=== PATIENT | male | born 1965 | race African-American/Black ===

== ENCOUNTER 2017-01-28 04:23 | Emergency (ER) | payer BC ==
[~2017-01-28] VITALS: Ht 190.5 cm; Wt 97.5 kg
[~2017-01-28 04:23] MED LIST: ACET-907 PO; AMLO5TAB2 PO; ASPI-807 PO; BENA10TA2 PO; METH750T3 PO
[2017-01-28 04:30] VITALS: BP 171/112
[2017-01-28] MEDS ORDERED: BUPIVACAINE 0.5 % PF 150 MG/30 ML VIAL ONE (04:41)
[2017-01-28] MEDS ORDERED: BUPIVACAINE 0.5 % PF 150 MG/30 ML VIAL IJ ONE (05:00)
== END 2017-01-28 05:08 | disposition home or self-care (01) ==
LOC: ER 04:25
DX: M62.830 Muscle spasm of back (principal); I10 Essential (primary) hypertension; I25.2 Old myocardial infarction; G89.29 Other chronic pain; Z79.82 Long term (current) use of aspirin; Z88.1 Allergy status to other antibiotic agents; Z88.6 Allergy status to analgesic agent; F17.200 Nicotine dependence, unspecified, uncomplicated
CPT/HCPCS: 20552; 99284; A4606; J3490; Z7610

== ENCOUNTER 2017-11-02 23:41 | Emergency (ER) | payer BC ==
[~2017-11-02] VITALS: Ht 190.5 cm; Wt 95.3 kg
[2017-11-02 23:48] VITALS: BP 150/91
[2017-11-03] MEDS ORDERED: DIAZEPAM 10 MG TABLET ONE (00:08)
[2017-11-03] MEDS ORDERED: DIAZEPAM 10 MG TABLET PO ONE (00:30)
[2017-11-03] MEDS ORDERED: DIAZEPAM 5 MG/ML 2 ML DISP.SYRIN IM ONE (00:30)
== END 2017-11-03 00:14 | disposition home or self-care (01) ==
LOC: ER 23:46
DX: S39.012A Strain of muscle, fascia and tendon of lower back, initial encounter (principal); I10 Essential (primary) hypertension; M48.00 Spinal stenosis, site unspecified; G89.29 Other chronic pain; F17.200 Nicotine dependence, unspecified, uncomplicated; I25.2 Old myocardial infarction; Z79.82 Long term (current) use of aspirin; Z88.5 Allergy status to narcotic agent; Z88.1 Allergy status to other antibiotic agents; Z88.6 Allergy status to analgesic agent; X58.XXXA Exposure to other specified factors, initial encounter; Y93.89 Activity, other specified; Y92.89 Other specified places as the place of occurrence of the external cause; Y99.8 Other external cause status
CPT/HCPCS: 99283; A4606; Z7610

== ENCOUNTER 2017-12-11 00:39 | Emergency (ER) | payer BC ==
[~2017-12-11] VITALS: Ht 190.5 cm; Wt 97.5 kg
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
--- NOTE | 2017-12-11 01:01 | NUR ---
PT AMBULATORY TO ER BED 6. PT NOTED WITH LIMPING GATE.
--- NOTE | 2017-12-11 01:18 | NUR ---
DR. PETTIT AT BEDSIDE FOR EVAL.
[2017-12-11] MEDS ORDERED: oxyCODONE/APAP (5/325 MG) 1 UDTAB TABLET ONE (01:25)
[2017-12-11] MEDS: oxyCODONE/APAP (5/325 MG) 1 UDTAB TABLET PO ONE (01:27)
--- NOTE | 2017-12-11 01:32 | NUR ---
PT TO RADIOLOGY
--- NOTE | 2017-12-11 01:44 | NUR ---
PT RETURNED FROM RADIOLOGY
--- NOTE | 2017-12-11 03:20 | NUR ---
DR. PETTIT AT BEDSIDE SPEAKING TO PT REGARDING RESULTS.
[2017-12-11 03:36] VITALS: BP 128/98
== END 2017-12-11 03:38 | disposition home or self-care (01) ==
LOC: ER 00:41
DX: M54.5 Low back pain (principal); G89.29 Other chronic pain; I10 Essential (primary) hypertension; I25.2 Old myocardial infarction; M48.00 Spinal stenosis, site unspecified; F17.200 Nicotine dependence, unspecified, uncomplicated; Z88.1 Allergy status to other antibiotic agents; Z88.5 Allergy status to narcotic agent; Z79.82 Long term (current) use of aspirin; W06.XXXA Fall from bed, initial encounter; Y93.89 Activity, other specified; Y92.89 Other specified places as the place of occurrence of the external cause; Y99.8 Other external cause status
CPT/HCPCS: 72110-TC; A4606; Z7610

== ENCOUNTER 2018-02-01 08:35 | Emergency (ER) | payer BC ==
[~2018-02-01] VITALS: Ht 190.5 cm; Wt 95.3 kg
[~2018-02-01 08:35] MED LIST changes: -AMLO5TAB2 PO; +AMLO5TAB7 PO; -BENA10TA2 PO; +BENA10TA9 PO
--- NOTE | 2018-02-01 08:40 | NUR ---
AAOX3, BIB C/O LOWER BACK PAIN RADIATES TO LEFT GROIN DOWN TO HIS KNEES X 1 WEEK. DENIES RECENT TRAUMA OR INJURY. CMS WNL. SKIN IS WARM AND DRY. RESP IS EVEN AND UNLABORED WITH NAD NOTED. DR FAN AT BS FOR EVAL.
[2018-02-01] MEDS ORDERED: KETOROLAC TROMETHAMINE 15 MG/ML VIAL ONE (08:57)
[2018-02-01] MEDS ORDERED: CYCLOBENZAPRINE 10 MG TABLET ONE (08:58)
[2018-02-01] MEDS ORDERED: KETOROLAC TROMETHAMINE INJ 30 MG/ML VIAL IM ONE (09:00)
[2018-02-01] MEDS ORDERED: CYCLOBENZAPRINE 10 MG TABLET PO ONE (09:00)
[2018-02-01 09:45] VITALS: BP 138/82
== END 2018-02-01 09:46 | disposition home or self-care (01) ==
LOC: ER 08:43
DX: M54.5 Low back pain (principal); I10 Essential (primary) hypertension; I25.10 Atherosclerotic heart disease of native coronary artery without angina pectoris; M48.00 Spinal stenosis, site unspecified; F17.200 Nicotine dependence, unspecified, uncomplicated; G89.29 Other chronic pain; I25.2 Old myocardial infarction; Z79.82 Long term (current) use of aspirin; Z88.5 Allergy status to narcotic agent; Z88.6 Allergy status to analgesic agent; Z88.1 Allergy status to other antibiotic agents
CPT/HCPCS: 96372; 99283; A4606; J1885; Z7610

== ENCOUNTER 2019-02-11 15:53 | Emergency (ER) | payer BC ==
[~2019-02-11] VITALS: Ht 190.5 cm; Wt 97.5 kg
[~2019-02-11 15:53] MED LIST changes: -AMLO5TAB7 PO; +AMLO5TAB9 PO
--- NOTE | 2019-02-11 16:15 | NUR ---
CAME IN FOR BACK PAIN RADIATING TO BILAT LOWER EXTREMITY, SHOOTING PAIN DESCRIBED BY THE PATIENT, SINCE LAST NIGHT 07/30 PS. TO ER BED 2, HOOKED TO MONITOR, CHANGED TO GOWN, PROVIDED W WARM BLANKET, AWAITING MD SPANN.
--- NOTE | 2019-02-11 16:30 | NUR ---
CYDNEY DE SOUZA AT BEDSIDE
[2019-02-11] MEDS ORDERED: KETOROLAC TROMETHAMINE INJ 30 MG/ML VIAL IM ONE (17:00)
[2019-02-11] MEDS ORDERED: CYCLOBENZAPRINE 10 MG TABLET PO ONE (17:00)
[2019-02-11] MEDS ORDERED: CYCLOBENZAPRINE 10 MG TABLET ONE (17:05)
[2019-02-11] MEDS ORDERED: KETOROLAC TROMETHAMINE 15 MG/ML VIAL ONE (17:05)
[2019-02-11] MEDS ORDERED: HYDROMORPHONE HCL 2 MG TABLET ONE (17:22)
[2019-02-11] MEDS ORDERED: HYDROMORPHONE HCL 2 MG TABLET PO PRN (17:30)
--- NOTE | 2019-02-11 18:40 | NUR ---
Patient discharged to home in stable condition. Written and verbal after care instructions given. Patient verbalizes understanding of instruction.
[2019-02-11 18:52] VITALS: BP 136/90
== END 2019-02-11 18:41 | disposition home or self-care (01) ==
LOC: ER 15:58
DX: G89.29 Other chronic pain (principal); M54.5 Low back pain; F03.90 Unspecified dementia, unspecified severity, without behavioral disturbance, psychotic disturbance, mood disturbance, and anxiety; I10 Essential (primary) hypertension; I21.9 Acute myocardial infarction, unspecified; F17.200 Nicotine dependence, unspecified, uncomplicated; Z98.890 Other specified postprocedural states; Z88.1 Allergy status to other antibiotic agents; Z88.5 Allergy status to narcotic agent; Z79.84 Long term (current) use of oral hypoglycemic drugs
CPT/HCPCS: 99283; J1885

== ENCOUNTER 2019-07-08 23:37 | Emergency (ER) | payer BC ==
[~2019-07-08 23:37] MED LIST changes: +BENA10TA11 PO; -BENA10TA9 PO
--- NOTE | 2019-07-09 01:15 | NUR ---
CALLED TO BE TRIAGED, NO ANSWER
== END 2019-07-09 01:54 | disposition left against medical advice (07) ==
LOC: ER 23:37
DX: Z53.21 Procedure and treatment not carried out due to patient leaving prior to being seen by health care provider (principal)

== ENCOUNTER 2019-09-09 02:29 | Emergency (ER) | payer BC ==
[~2019-09-09] VITALS: Ht 190.5 cm; Wt 93.9 kg
[2019-09-09 02:49] VITALS: BP 178/109
[2019-09-09] MEDS ORDERED: HYDROMORPHONE INJ 2 MG/ML DISP.SYRIN IM ONE (03:30)
[2019-09-09] MEDS ORDERED: HYDROMORPHONE INJ 2 MG/ML DISP.SYRIN ONE (03:35)
--- NOTE | 2019-09-09 03:46 | NUR ---
Patient discharged to home in stable condition. Rx and Written and verbal after care instructions given. Patient verbalizes understanding of instruction.
== END 2019-09-09 03:54 | disposition home or self-care (01) ==
LOC: ER 02:30
DX: M54.5 Low back pain (principal); I10 Essential (primary) hypertension; I25.2 Old myocardial infarction; G89.29 Other chronic pain; Z98.890 Other specified postprocedural states; Z88.1 Allergy status to other antibiotic agents; Z88.6 Allergy status to analgesic agent; Z79.899 Other long term (current) drug therapy; Z79.82 Long term (current) use of aspirin
CPT/HCPCS: 96372; 99283; J1170

== ENCOUNTER 2019-11-05 01:36 | Emergency (ER) | payer BC ==
[~2019-11-05] VITALS: Ht 190.5 cm; Wt 96.2 kg
[~2019-11-05 01:36] MED LIST changes: -BENA10TA11 PO; +BENA10TA74 PO
--- NOTE | 2019-11-05 02:10 | NUR ---
PT PRESENTED TO THE ER WITH A C/O LT LOWER CHRONIC BACK PAIN THAT RADIATES TO THE LLE. PT STATED THAT THE PAIN RADIATED FROM HIS BACK TO HIS LT KNEE W/ NUMBNESS. PT AMBULATED TO ER 7 WITH A LIMP. PT STATED THAT HE CAN NOT SIT DOWN. PT IS LYING ON HIS RT SIDE. WILL CONTINUE TO MONITOR THE PT.
[2019-11-05] MEDS ORDERED: HYDROMORPHONE 1 MG/1 ML DISP.SYRIN ONE ×2 (02:43→02:47)
[2019-11-05] MEDS ORDERED: LORAZEPAM INJ 2 MG/ML VIAL ONE (02:43)
[2019-11-05] MEDS ORDERED: HYDROMORPHONE INJ 2 MG/ML DISP.SYRIN IM ONE (03:00)
[2019-11-05] MEDS ORDERED: LORAZEPAM INJ 2 MG/ML VIAL IM ONE (03:00)
--- NOTE | 2019-11-05 03:02 | NUR ---
Patient discharged to home in stable condition. Written and verbal after care instructions given. Patient verbalizes understanding of instruction AND RX. PT AMBULATED OUT WITH A SLIGHT LIMP. VSS PT'S IS DRIVING THE PT HOME.
[2019-11-05 03:04] VITALS: BP 148/89
== END 2019-11-05 03:05 | disposition home or self-care (01) ==
LOC: ER 01:38
DX: M54.42 Lumbago with sciatica, left side (principal); G89.29 Other chronic pain; I10 Essential (primary) hypertension; I25.2 Old myocardial infarction; Z98.890 Other specified postprocedural states; Z88.1 Allergy status to other antibiotic agents; Z88.5 Allergy status to narcotic agent; Z79.82 Long term (current) use of aspirin; Z79.899 Other long term (current) drug therapy
CPT/HCPCS: 96372 ×2; 99283; J1170 ×2; J2060

== ENCOUNTER 2020-03-21 13:50 | Emergency (ER) | payer BC ==
[~2020-03-21] VITALS: Ht 190.5 cm; Wt 97.1 kg
--- NOTE | 2020-03-21 14:11 | NUR ---
back pain x 2 days
--- NOTE | 2020-03-21 14:30 | NUR ---
dr conti at bedside for eval.
[2020-03-21] MEDS ORDERED: HYDROCODONE/APAP 10/325MG 1 EA TABLET ONE (14:43)
[2020-03-21] MEDS ORDERED: HYDROCODONE/APAP 10/325MG 1 EA TABLET PO ONE (15:00)
--- NOTE | 2020-03-21 15:05 | NUR ---
Patient discharged to home in stable condition. Written and verbal after care instructions given. Patient verbalizes understanding of instruction.
[2020-03-21 15:06] VITALS: BP 135/87
== END 2020-03-21 15:06 | disposition home or self-care (01) ==
LOC: ER 13:54
DX: G89.29 Other chronic pain (principal); M54.5 Low back pain; I10 Essential (primary) hypertension; I25.2 Old myocardial infarction; Z98.890 Other specified postprocedural states; Z88.1 Allergy status to other antibiotic agents; Z88.6 Allergy status to analgesic agent; Z79.899 Other long term (current) drug therapy; Z79.82 Long term (current) use of aspirin

== ENCOUNTER 2020-03-21 18:10 | Emergency (ER) | payer BC ==
[~2020-03-21] VITALS: Ht 190.5 cm; Wt 97.1 kg
[2020-03-21 18:10] VITALS: BP 147/87
--- NOTE | 2020-03-21 18:49 | NUR ---
Patient discharged to home in stable condition. Written and verbal after care instructions given. Patient verbalizes understanding of instruction.
== END 2020-03-21 18:48 | disposition home or self-care (01) ==
LOC: ER 18:17
DX: M54.9 Dorsalgia, unspecified (principal); Z76.5 Malingerer [conscious simulation]; I10 Essential (primary) hypertension; I25.2 Old myocardial infarction; G89.29 Other chronic pain; Z98.890 Other specified postprocedural states; Z88.1 Allergy status to other antibiotic agents; Z88.6 Allergy status to analgesic agent; Z79.899 Other long term (current) drug therapy; Z79.82 Long term (current) use of aspirin

== ENCOUNTER 2021-02-02 07:58 | Emergency (ER) | payer BC ==
[~2021-02-02] VITALS: Ht 190.5 cm; Wt 97.5 kg
[~2021-02-02 07:58] MED LIST changes: +AMLO-212 PO; -AMLO5TAB9 PO; +METH-807 PO; -METH750T3 PO
--- NOTE | 2021-02-02 08:10 | NUR ---
THE PATIENT IS BIB [facility] 8[facility], CHRONIC BACK PROBLEM AGGRAVATED BY WAXING HIS FLOOR YESTERDAY. THE PATIENT C/O BACK PAIN 07/30. DENIES NUMBNESS/TINGLING IN THE EXTREMITIES. WARM BLANKET PROVIDED FOR COMFORT. WILL CONTINUE TO MONITOR THE PATIENT.
[2021-02-02] MEDS: ONDANSETRON HCL/PF 4 MG/2 ML VIAL IV ONE (09:08)
[2021-02-02] MEDS: IV NS 0.9% 500 ML BAG IV ONE (09:08)
[2021-02-02] MEDS: LORAZEPAM INJ 2 MG/ML VIAL IV ONE (09:08)
[2021-02-02] MEDS: FENTANYL PF 100MCG/2ML AMPUL IV ONE (09:09)
[2021-02-02] MEDS ORDERED: ONDANSETRON HCL/PF 4 MG/2 ML VIAL ONE (09:10)
[2021-02-02] MEDS ORDERED: FENTANYL PF 100MCG/2ML AMPUL ONE (09:10)
[2021-02-02] MEDS ORDERED: LORAZEPAM INJ 2 MG/ML VIAL ONE (09:11)
[2021-02-02] MEDS ORDERED: METH4TAB3 PO (09:25)
[2021-02-02 10:21] VITALS: BP 126/82
--- NOTE | 2021-02-02 10:21 | NUR ---
Patient discharged to home in stable condition. Written and verbal after care instructions given. Patient verbalizes understanding of instruction. The patient left ER in stable conditon.
== END 2021-02-02 10:22 | disposition home or self-care (01) ==
LOC: ER 07:59
DX: M54.5 Low back pain (principal); G89.29 Other chronic pain; I10 Essential (primary) hypertension; I25.2 Old myocardial infarction; Z98.890 Other specified postprocedural states; Z88.1 Allergy status to other antibiotic agents; Z88.5 Allergy status to narcotic agent; Z79.82 Long term (current) use of aspirin; Z79.899 Other long term (current) drug therapy
CPT/HCPCS: 96374; 96375; 99284; J2060; J2405; J3010; J7040

== ENCOUNTER 2021-04-03 06:13 | Emergency (ER) | payer BC ==
[~2021-04-03] VITALS: Ht 190.5 cm; Wt 97.5 kg
[~2021-04-03 06:13] MED LIST changes: +METH4TAB3 PO
--- NOTE | 2021-04-03 06:15 | NUR ---
C/O CHILLS, BODY PAIN SINCE YESTERDAY., PT AAOX4, DENIES ANY SOB/CP, GOWNED, PLACED ON MONITOR. NOT IN ACUTE DISTRESS, VSS, PENDING ER PROVIDER MARIA INES
[2021-04-03] MEDS ORDERED: IV NS 0.9% 1,000 ML BAG IV ONE (07:00)
[2021-04-03 07:15] LABS: BASOPHILS % (AUTO) 0.6 % (0.0-2.0); EOSINOPHILS % (AUTO) 2.1 % (0.0-6.0); HEMATOCRIT 42 % (39-51); HEMOGLOBIN 14.1 g/dL (13.5-17.5); LYMPHOCYTES # (AUTO) 1.3 /CMM (0.8-4.8); LYMPHOCYTES % (AUTO) 18.2 % (20.0-44.0); MEAN CORPUSCULAR HGB CONC 33 g/dl (31.0-36.0); MEAN CORPUSCULAR VOLUME 81 fL (80-96); MONOCYTES # (AUTO) 0.6 /CMM (0.1-1.30); MONOCYTES % (AUTO) 7.5 % (2.0-12.0); NEUTROPHILS # (AUTO) 5.2 /CMM (1.8-8.9); NEUTROPHILS % (AUTO) 71.6 % (43.0-81.0); PLATELET COUNT (AUTO) 211 /CMM (150-450); RED BLOOD CELL COUNT(AUTO) 5.19 MIL/uL (4.5-6.0); WHITE BLOOD COUNT (AUTO) 7.3 K/uL (4.3-11.0)
[2021-04-03 07:17] LABS: BILIRUBIN,URINE NEGATIVE (NEGATIVE); COLOR,URINE YELLOW (YELLOW); LEUKOCYTE ESTERASE ,URINE NEGATIVE (NEGATIVE); NITRITE, URINE NEGATIVE (NEGATIVE); PH,URINE 7.5 (5.0-8.0); PROTEIN,URINE NEGATIVE (NEGATIVE); UGLUCOSE NEGATIVE (NEGATIVE); UROBILINOGEN,URINE 0.2 EU/dL (0.2)
--- NOTE | 2021-04-03 07:22 | NUR ---
RECEIVED REPORT FROM CELSA LI FOR [facility]. PT IS AAOX4, NOT IN RESPIRATORY DISTRESS, V/S STABLE, KEPT RESTED AND COMFORTABLE. WILL CONTINUE TO MONITOR.
--- NOTE | 2021-04-03 07:23 | NUR ---
RECORDAK OPERATOR AT BEDSIDE FOR XRAY.
[2021-04-03 07:24] LABS: CALCIUM, SERUM 9.3 mg/dL (8.5-10.1); CREATININE 0.7 mg/dL (0.6-1.3); POTASSIUM 3.3 mmol/L (3.5-5.1)
[2021-04-03 07:31] LABS: ALBUMIN 3.8 g/dL (3.4-5.0); BILIRUBIN,DIRECT 0.2 mg/dL (0.0-0.2); BILIRUBIN,TOTAL 1.1 mg/dL (0.2-1.0); TOTAL PROTEIN, SERUM 7.3 g/dL (6.4-8.2)
--- NOTE | 2021-04-03 08:24 | NUR ---
IV removed. Catheter intact and site benign. Pressure and 4x4 applied to site. No bleeding noted. Patient discharged to home in stable condition. Written and verbal after care instructions given. Patient verbalizes understanding of instruction.
[2021-04-03 08:25] VITALS: BP 125/71
== END 2021-04-03 08:25 | disposition home or self-care (01) ==
LOC: ER 06:17
DX: B34.9 Viral infection, unspecified (principal); Z20.822 Contact with and (suspected) exposure to COVID-19; I25.2 Old myocardial infarction; M48.00 Spinal stenosis, site unspecified; G89.29 Other chronic pain; I10 Essential (primary) hypertension; Z88.1 Allergy status to other antibiotic agents; Z88.5 Allergy status to narcotic agent; Z91.013 Allergy to seafood
CPT/HCPCS: 36415; 71045; 80048; 80076; 81003; 82550; 83690; 85025; 87426; 93005; 96360; 99285; C9803; J7030

== ENCOUNTER 2021-05-02 13:27 | Emergency (ER) | payer BC ==
[~2021-05-02] VITALS: Ht 190.5 cm; Wt 96.6 kg
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
[2021-05-02] MEDS ORDERED: HYDROMORPHONE 1 MG/1 ML DISP.SYRIN IV ONE ×2 (15:30→17:00)
[2021-05-02] MEDS ORDERED: HYDROMORPHONE 1 MG/1 ML DISP.SYRIN ONE ×2 (15:46→17:08)
[2021-05-02] MEDS ORDERED: ONDANSETRON HCL/PF 4 MG/2 ML VIAL ONE (15:49)
--- NOTE | 2021-05-02 15:53 | NUR ---
PATIENT REFUSING DILAUDID 1MG. PATIENT IS REQUESTING FOR DILAUDID 4MG. DR. KIM MADE AWARE AND WILL TALK TO THE PATIENT.
[2021-05-02] MEDS ORDERED: ONDANSETRON HCL/PF - ER 4 MG/2 ML VIAL IV ONE (16:00)
[2021-05-02] MEDS ORDERED: KETOROLAC TROMETHAMINE INJ 30 MG/ML VIAL IV ONE (17:00)
[2021-05-02] MEDS ORDERED: KETOROLAC TROMETHAMINE 15 MG/ML VIAL ONE (17:08)
--- NOTE | 2021-05-02 17:30 | NUR ---
Patient a/ox4, breathing even and unlabored, no sob noted. Ambulatory withs teady gait. IV removed. Catheter intact and site benign. Pressure and 4x4 applied to site. No bleeding noted.Patient discharged to home in stable condition. Written and verbal after care instructions given. Patient verbalizes understanding of instruction. Instructed patient not to drive.
[2021-05-02 17:31] VITALS: BP 166/97
[2021-05-03] MEDS ORDERED: METH4TAB3 PO (10:33)
== END 2021-05-02 17:31 | disposition home or self-care (01) ==
LOC: ER 13:27
DX: M54.5 Low back pain (principal); G89.29 Other chronic pain; I10 Essential (primary) hypertension; I25.10 Atherosclerotic heart disease of native coronary artery without angina pectoris; I25.2 Old myocardial infarction; Z98.890 Other specified postprocedural states; Z88.1 Allergy status to other antibiotic agents; Z88.5 Allergy status to narcotic agent; Z79.899 Other long term (current) drug therapy; Z79.82 Long term (current) use of aspirin
CPT/HCPCS: 72128; 72131; 96374; 96375; 96376; 99285; J1170 ×2; J1885; J2405 ×2

== ENCOUNTER 2021-05-03 08:03 | Emergency (ER) | payer BC ==
[~2021-05-03] VITALS: Ht 190.5 cm; Wt 113.4 kg
--- NOTE | 2021-05-03 08:30 | NUR ---
The patient bibs for c/o chronic lower back pain since 2am. taking dialudid 4mg po, no relief. The patient rates back pain 10/10. In room air and denies SOB. Respiration regular and unlabored. Will continue to monitor the patient.
[2021-05-03] MEDS ORDERED: methylPREDNISolone SOD SUCC 125 MG/2ML VIAL ONE (08:49)
[2021-05-03] MEDS ORDERED: HYDROMORPHONE 1 MG/1 ML DISP.SYRIN ONE ×2 (08:49→10:09)
[2021-05-03] MEDS ORDERED: KETOROLAC TROMETHAMINE INJ 30 MG/ML VIAL ONE (08:49)
[2021-05-03] MEDS ORDERED: HYDROMORPHONE 1 MG/1 ML DISP.SYRIN IV ONE ×2 (09:00→10:30)
[2021-05-03] MEDS ORDERED: methylPREDNISolone SOD SUCC 125 MG/2ML VIAL IV ONE (09:00)
[2021-05-03] MEDS ORDERED: KETOROLAC TROMETHAMINE INJ 30 MG/ML VIAL IV ONE (09:00)
[2021-05-03] MEDS ORDERED: METH4TAB3 PO (10:33)
--- NOTE | 2021-05-03 10:41 | NUR ---
PATIENT A/OX4, AMBULATORY WITH STEADY GAIT, RR EVEN AND UNLABORED, NO SOB NOTED. Patient c/o mild pain, tolerable at this time. Called for pick pulling machine tender. IV removed. Catheter intact and site benign. Pressure and 4x4 applied to site. No bleeding noted.Patient discharged to home in stable condition. Written and verbal after care instructions given. Patient verbalizes understanding of instruction.
[2021-05-03 10:42] VITALS: BP 154/59
== END 2021-05-03 10:43 | disposition home or self-care (01) ==
LOC: ER 08:07
DX: M54.5 Low back pain (principal); G89.29 Other chronic pain; I10 Essential (primary) hypertension; I25.2 Old myocardial infarction; Z98.890 Other specified postprocedural states; Z88.1 Allergy status to other antibiotic agents; Z88.5 Allergy status to narcotic agent; Z79.82 Long term (current) use of aspirin; Z79.899 Other long term (current) drug therapy
CPT/HCPCS: 96374; 96375; 96376; 99284; J1170 ×2; J1885; J2930

== ENCOUNTER 2021-05-15 03:15 | Emergency (ER) | payer BC ==
[~2021-05-15] VITALS: Ht 190.5 cm; Wt 97.5 kg
[~2021-05-15 03:15] MED LIST changes: -METH-807 PO; +METH750T3 PO
[2021-05-15 03:22] VITALS: BP 169/122
[2021-05-15] MEDS ORDERED: DOCU-141 PO (04:38)
[2021-05-15] MEDS ORDERED: MAGNESIUM CITRATE 296 ML BOTTLE ONE (04:40)
[2021-05-15] MEDS: MAGNESIUM CITRATE 296 ML BOTTLE PO ONE (04:41)
== END 2021-05-15 04:52 | disposition home or self-care (01) ==
LOC: ER 03:15
DX: K59.00 Constipation, unspecified (principal); I10 Essential (primary) hypertension; I25.2 Old myocardial infarction; G89.29 Other chronic pain; Z98.890 Other specified postprocedural states; Z88.1 Allergy status to other antibiotic agents; Z88.6 Allergy status to analgesic agent; Z79.899 Other long term (current) drug therapy; Z79.82 Long term (current) use of aspirin

== ENCOUNTER 2021-09-16 00:32 | Emergency (ER) | payer BC ==
[~2021-09-16] VITALS: Ht 190.5 cm; Wt 96.2 kg
[~2021-09-16 00:32] MED LIST changes: +DOCU-141 PO
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
[2021-09-16] MEDS ORDERED: MORPHINE SULFATE INJ 4 MG/ML DISP.SYRIN ONE (01:09)
--- NOTE | 2021-09-16 01:14 | NUR ---
Patient discharged to home in stable condition. Written and verbal after care instructions given. Patient verbalizes understanding of instruction.
[2021-09-16 01:29] VITALS: BP 157/96
[2021-09-16] MEDS ORDERED: MORPHINE SULFATE INJ 2 MG/ML DISP.SYRIN IM ONE (01:30)
== END 2021-09-16 01:30 | disposition home or self-care (01) ==
LOC: ER 00:34
DX: G89.29 Other chronic pain (principal); M54.2 Cervicalgia; M54.9 Dorsalgia, unspecified; I10 Essential (primary) hypertension; I25.2 Old myocardial infarction; Z98.890 Other specified postprocedural states; Z88.1 Allergy status to other antibiotic agents; Z79.82 Long term (current) use of aspirin; Z79.899 Other long term (current) drug therapy
CPT/HCPCS: 96372; 99283; J2270